=== PATIENT | male | born 1985 | race Caucasian/White ===

== ENCOUNTER → 2021-05-30 | Outpatient (CLI) | payer OTHER ==
--- NOTE | 2021-05-30 15:02 | KCIC ---
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 FINDINGS: ROTATOR CUFF: The supraspinatus, infraspinatus, subscapularis, and teres minor tendons are intact. No rotator cuff muscle atrophy or edema. LABRUM: The labrum is intact. BICEPS TENDON: The biceps tendon is intact and located. ACROMIOCLAVICULAR JOINT: Minimal degenerative changes with small subchondral cysts in the distal clav icle. Type II acromion without downsloping. GLENOHUMERAL JOINT: Articular cartilage is intact. No acute fracture or marrow signal abnormality. Al ignment is normal. OTHER: No joint effusion or intra-articular body. No subacromial-subdeltoid bursitis. IMPRESSION: 1. No rotator cuff tear or labral tear. 2. 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 3. Otherwise normal MRI of the shoulder. Electronically signed by: Shayy Segundo MD (05/30/2021 2:59 PM) [id number]
== END ==
LOC: KCIC MRI 10:52
PROVIDERS: ATTEND Family Medicine
DX: M19.011 Primary osteoarthritis, right shoulder (principal); M25.811 Other specified joint disorders, right shoulder
CPT/HCPCS: 73221